=== PATIENT | female | born 1995 | race African-American/Black ===

== ENCOUNTER 2016-06-13 09:41 | Emergency (ER) | payer OTHER ==
[~2016-06-13] VITALS: Ht 147.3 cm; Wt 57.1 kg
[~2016-06-13 09:41] MED LIST: BACTRIM DS TAB1 EACH PO; CALCIUM + VIT1 EACH; CALCIUM 500 +1 EAC5 PO; COLACE100 MG PO; D3 DOTS2000 UNIT PO; DICLEGIS DR 101 EACH PO; ENSURE COMPLET237 ML PO; IRON325 PO; KEFLEX500 MG PO; MACROBID 100 M100 M1 PO; NAPROSYN375 MG; NOHOMEMEDICATIONS; NORCO 5-325 TA1 EACH PO; POTASSIUM20 PO; PRENATAL PO; ROBITUSSIN100 MG/53 PO; TRINATE TABLET1 TAB PO; VENTOLIN HFA 1818 GM INH; WELLBUTRIN SR200 MG; ZOFRAN ODT4 MG PO
[2016-06-13 09:43] VITALS: BP 112/74
[2016-06-13 10:00] LABS: URINE BILIRUBIN NEGATIVE (Negative); URINE BLOOD NEGATIVE (Negative); URINE COLOR YELLOW; URINE GLUCOSE-RANDOM* NEGATIVE (Negative); URINE KETONES NEGATIVE (Negative); URINE LEUKOCYTES-REFLEX NEGATIVE (Negative); URINE PROTEIN (DIPSTICK) NEGATIVE (Negative); URINE UROBILINOGEN 0.2 E.U./dl (0.2-1.0)
[2016-06-13] MEDS ORDERED: MACROBID 100 M100 M1 PO (10:13)
[2016-06-13] MEDS ORDERED: PHENAZOPYRIDIN200 M2 PO (10:13)
[2016-06-22] MEDS ORDERED: PROMETHAZINE-C120 ML PO (15:05)
[2016-06-22] MEDS ORDERED: MUCINEX TA600 MG/TA2 PO (15:05)
[2016-06-22] MEDS ORDERED: IBUPROFEN 600600 M1 PO (15:05)
== END 2016-06-13 10:40 | disposition home or self-care (01) ==
LOC: ER 09:41
PROVIDERS: Physician Assistant
DX: N39.0 Urinary tract infection, site not specified (principal); Z98.890 Other specified postprocedural states; Z91.013 Allergy to seafood

== ENCOUNTER 2016-10-09 21:01 | Emergency (ER) | payer OTHER ==
[~2016-10-09] VITALS: Ht 147.3 cm; Wt 59.0 kg
[~2016-10-09 21:01] MED LIST changes: +IBUPROFEN 600600 M1 PO; +MUCINEX TA600 MG/TA2 PO; +PHENAZOPYRIDIN200 M2 PO; +PROMETHAZINE-C120 ML PO
[2016-10-09] MEDS ORDERED: TRINATE TABLET1 TAB PO (21:27)
[2016-10-09] MEDS ORDERED: CALCIUM GUMMIE1 EACH (21:27)
[2016-10-09] MEDS ORDERED: PREDNISONE 20 M20 MG PO (23:04)
[2016-10-09 23:15] VITALS: BP 126/74
== END 2016-10-09 23:17 | disposition home or self-care (01) ==
LOC: ER 21:01
DX: O99.711 Diseases of the skin and subcutaneous tissue complicating pregnancy, first trimester (principal); Z91.013 Allergy to seafood

== ENCOUNTER 2018-07-27 12:41 | Emergency (ER) | payer BC ==
[~2018-07-27] VITALS: Ht 147.3 cm; Wt 57.1 kg
[~2018-07-27 12:41] MED LIST changes: +CALCIUM GUMMIE1 EACH; +PREDNISONE 20 M20 MG PO; +PYRIDIUM200 MG PO
[2018-07-27] MEDS ORDERED: ACETAMINOPHEN-1 EAC1 PO (13:59)
[2018-07-27 14:49] VITALS: BP 128/70
== END 2018-07-27 14:10 | disposition home or self-care (01) ==
LOC: ER 12:41
DX: S01.512A Laceration without foreign body of oral cavity, initial encounter (principal); Z98.890 Other specified postprocedural states; Z91.013 Allergy to seafood; X58.XXXA Exposure to other specified factors, initial encounter; Y92.89 Other specified places as the place of occurrence of the external cause; Y93.89 Activity, other specified; Y99.8 Other external cause status

== ENCOUNTER 2020-09-05 15:53 | Emergency (ER) | payer OTHER ==
[~2020-09-05] VITALS: Ht 162.6 cm; Wt 61.2 kg
[~2020-09-05 15:53] MED LIST changes: +ACETAMINOPHEN-1 EAC1 PO
[2020-09-05 17:32] LABS: HEMATOCRIT 39.4 % (37.0-47.0); HEMOGLOBIN 12.8 gm/dL (12.0-15.0); MCH 29.4 pg (26.0-34.0); MCHC 32.4 g/dL (28.0-37.0); MCV 90.8 fL (80.0-100.0); RBC 4.34 mil/uL (4.20-5.00); RDW 13.7 % (10.5-14.5); WBC 10.6 thou/uL (4.0-11.0)
[2020-09-05 17:42] LABS: CALCIUM 8.9 mg/dL (8.5-10.1); CREATININE 1.1 mg/dL (0.6-1.0); POTASSIUM 4.1 mmol/L (3.5-5.1)
[2020-09-05 17:48] LABS: ALBUMIN 4.4 g/dL (3.4-5.0); TOTAL BILIRUBIN 0.3 mg/dL (0.2-1.0); TOTAL PROTEIN 8.1 g/dL (6.4-8.2)
[2020-09-05 18:55] LABS: URINE BILIRUBIN NEGATIVE (Negative); URINE BLOOD 3+ (Negative); URINE COLOR YELLOW; URINE GLUCOSE-RANDOM* NEGATIVE (Negative); URINE KETONES NEGATIVE (Negative); URINE LEUKOCYTES-REFLEX NEGATIVE (Negative); URINE NITRITE-REFLEX NEGATIVE (Negative); URINE PROTEIN (DIPSTICK) NEGATIVE (Negative); URINE SPECIFIC GRAVITY >= 1.030 (1.005-1.035); URINE UROBILINOGEN 0.2 E.U./dl (0.2-1.0)
[2020-09-05 18:57] LABS: URINE CLARITY SL HAZY
[2020-09-05 19:07] LABS: BACTERIA-REFLEX 1-9 Few /HPF (None Seen); CASTS None Seen /LPF (None Seen); CRYSTALS None Seen /LPF (None Seen); SQUAMOUS 4-10 Moderate /LPF (0-3); URINE RBC 3-10 Few /HPF (0-2); URINE WBC-REFLEX 0-5 Rare /HPF (0-5)
[2020-09-05 21:20] VITALS: BP 102/56
== END 2020-09-05 21:20 | disposition home or self-care (01) ==
LOC: ER 15:53
PROVIDERS: Emergency Medicine
DX: R56.9 Unspecified convulsions (principal); R11.2 Nausea with vomiting, unspecified; Z91.013 Allergy to seafood; Z90.49 Acquired absence of other specified parts of digestive tract